=== PATIENT | male | born 1970 | race Caucasian/White ===

== ENCOUNTER 2016-09-25 12:04 | Emergency (ER) | payer OTHER ==
[~2016-09-25 12:04] MED LIST: ASPIRIN EC81 MG PO; HYDROCODON-ACE1 EAC6 PO; LISINOPRIL10 MG PO; LOVENOX30 MG/0.3 SQ; NEXIUM40 MG PO; TOPROL XL200 MG PO; ZOFRAN4 MG PO; ZYLOPRIM300 MG PO
== END 2016-09-25 15:45 | disposition home or self-care (01) ==
LOC: ER 12:04
DX: R10.13 Epigastric pain (principal); R10.12 Left upper quadrant pain; R11.0 Nausea; F17.220 Nicotine dependence, chewing tobacco, uncomplicated; Z96.651 Presence of right artificial knee joint; Z79.899 Other long term (current) drug therapy; Z88.0 Allergy status to penicillin; Z88.5 Allergy status to narcotic agent; Z88.8 Allergy status to other drugs, medicaments and biological substances
CPT/HCPCS: 36415; 96374; 96375